=== PATIENT | female | born 1980 | race Caucasian/White ===

== ENCOUNTER 2022-02-28 13:35 | Emergency (ER) | payer OTHER, SELFPAY ==
[2022-02-28 13:35] VITALS: BP 152/91; PULSE 78; RESP 16; TEMP 36.6; O2SAT 100; BMI 41.8
[2022-02-28 15:33] VITALS: PULSE 78; RESP 16
[2022-02-28 15:38] LABS: Absolute Lymphocyte Count 1.64 X10^3/uL (0.83-4.51); Absolute Neutrophil Count 7.8 X10^3/uL (2.0-7.7); Basophil# 0.05 X10^3/uL; Basophil% 0.5 % (0-1); Eosinophil# 0.08 X10^3/uL; Eosinophils% 0.8 % (0-5); Hematocrit 36.1 % (37-47); Hemoglobin 10.9 g/dL (12.0-15.0); Lymphocyte # 1.64 X10^3/ul (0.83-4.51); Lymphocyte % 16.3 % (19-41); Mean Corp Hgb Conc 30.2 g/dL (32-36); Mean Corpuscular Hgb 24.1 pg (27.0-32.0); Mean Corpuscular Volume 79.7 fL (81-99); Mean Platelet Vol. 8.1 fl (6.2-12.0); Monocyte# 0.49 X10^3/uL; Monocyte% 4.9 % (0-10); NRBC Flagged by Analyzer 0 % (0-5); Neutrophil # 7.79 X10^3/uL (2.7-7.7); Neutrophil % 77.2 % (47-70); Platelet Count 456 K/mm3 (150-450); RBC Distribution Width SD 45.7 fl (35.1-43.9); Red Blood Count 4.53 M/mm3 (4.2-5.4); White Blood Count 10.1 K/mm3 (4.4-11.0)
--- NOTE | 2022-02-28 15:39 | EKG12_ITS ---
Test Reason : Blood Pressure : / mmHG Vent. Rate : 085 BPM Atrial Rate : 085 BPM P-R Int : 162 ms QRS Dur : 090 ms QT Int : 360 ms P-R-T Axes : 034 021 050 degrees QTc Int : 428 ms Normal sinus rhythm T wave abnormality, consider anterior ischemia Abnormal ECG Confirmed by CHRISTOPHER BONILLA, MARICRUZ ([id number]), publications editor NEGRITA SUH ([id number]) on 03/01/2022 11:10:55 AM Referred By: Confirmed By:MARICRUZ WHITE MD
--- NOTE | 2022-02-28 15:40 | EX.ED.DYSGE1 ---
HPI History of Present Illness Chief Complaint: Abd Pain Informant: patient Narrative Narrative: Patient actually presents with upper abdominal left lower chest pain. Its been there for several weeks. It is getting a little bit more common. She states the pain last for a matter of seconds at a time. She had 1 episode that seem to last about 20 or 30 seconds and had a fast heartbeat. She states many of the others feels like she skips a beat or has a heavy heartbeat associated with these. But they only last for seconds. She has not been syncopal. The rest of the time she feels fine. She does note that her appetite has been mildly down for the last week but there is no association with eating or not eating. There is no association either with taking deep breaths. There is no pain or difficulty with deep breaths. There is no symptoms caused by motion and twisting or reaching. No fevers or chills. She has no history of any cardiac disease, diabetes, blood pressure or smoking. She does have some obesity. No family history of heart disease or PEs. She has no travel surgery or immobilization personal or family history of DVT or PE. She is not on any hormonal therapy. She does take some vitamin supplements and zinc. Zinc is her newest supplement. But she cannot correlate the symptoms with this completely. [facility] Medical History Anxiety Home Medications cholecalciferol (vitamin D3) 10 mcg (400 unit) capsule (Vitamin D3) 400 unit PO DAILY 06/20/15 [History Last Taken Unknown] ferrous sulfate 325 mg (65 mg iron) tablet (Iron (ferrous sulfate)) 325 mg PO DAILY 06/20/15 [History Last Taken Unknown] hydrocodone-acetaminophen 5-325mg 5mg-325mg 1 - 2 tab PO Q4H PRN PRN Pain ##20 06/20/15 [Rx Last Taken Unknown] naproxen 500 mg tablet 500 mg PO BID PRN ##20 06/20/15 [Rx Last Taken Unknown] vitamin E 670 mg (1,000 unit) capsule 1,000 unit PO DAILY 06/20/15 [History Last Taken Unknown] Allergy/AdvReac Type Severity Reaction Status Date / Time Sulfa (Sulfonamide Allergy Anaphylaxis Verified 02/28/22 13:37 Antibiotics) Social History Smoking Status: Never smoker ROS ROS ED Constitutional Constitutional ED: Denies chills, fever(s) or sweats Eyes Eyes: Denies change in vision ENT ENT ED: Denies ear pain, rhinorrhea or sore throat Cardiovascular Cardiovascular: Reports palpitations; Denies orthopnea or paroxysmal nocturnal dyspnea Respiratory/Chest Respiratory/Chest: Denies cough, dyspnea, dyspnea on exertion, orthopnea, paroxysmal nocturnal dyspnea or sputum Gastrointestinal Gastrointestinal: Denies abdominal pain, diarrhea, nausea or vomiting Genitourinary Genitourinary ED: Denies dysuria Musculoskeletal Musculoskeletal: Denies back pain or neck pain Integumentary Denies rash Neurologic Neurologic: Denies headache(s) or paresthesias Endocrine Endocrinology: Denies polydipsia or polyuria Hematologic/Lymphatic Hematologic/Lymphatic: Denies anemia Allergic/Immunologic Allergic/Immunologic ED: Denies mouth swelling, tongue swelling or urticaria EXAM Physical Exam Const Vital Signs: 02/28/22 13:35 02/28/22 15:33 02/28/22 15:33 Temperature 97.8 F Temperature Source Temporal Pulse Rate 78 78 Respiratory Rate 16 16 Respiratory Effort Normal Respiratory Pattern Normal Blood Pressure 152/91 H Blood Pressure Mean 111 Pulse Ox 100 Oxygen Delivery Method Room Air Room Air 02/28/22 16:22 02/28/22 17:27 Temperature Temperature Source Pulse Rate 83 80 Respiratory Rate 16 19 H Respiratory Effort Respiratory Pattern Blood Pressure 179/94 H 168/97 H Blood Pressure Mean 122 120 Pulse Ox 97 95 Oxygen Delivery Method Room Air Room Air Positive well nourished and well developed General Appearance ED: well developed and NAD; Negative for cyanotic or diaphoretic HEENT Reports moist mucous membranes Eyes EOMs intact bilaterally Neck no JVD Chest Wall inspection of chest normal Chest Narrative: She states that sometimes pressing on the chest is little bit sore but it really does not produce the symptom that she feels. Resp normal respiratory effort and clear to auscultation bilaterally Resp Narrative: No pain with a deep breath. No coughing. Cardio regular rate and regular rhythm Rate: other Other Details: Patient had 1 PAC with compensatory pause while I was in the room. She did feel the symptoms she was complaining of when this occurred. I only saw 1 episode of this and she only had 1 moment of symptoms. GI normal to inspection, nondistended, normoactive bowel sounds and non-tender GI Narrative: Patient does not have any left upper quadrant tenderness. Her abdominal exam is actually quite benign Back/Spine no CVA tenderness Extremity normal to inspection Extremity Narrative: No edema or cords or tenderness. No asymmetry. Neuro Sensorium / Orientation: alert; Negative for lethargic or stuporous Psych mental status grossly normal Skin no rashes or lesions noted MDM MDM MDM Narrative Medical decision making narrative: Chest x-ray showed no acute process. CBC showed anemia which she has had before but I do not think a hemoglobin of 10.9 is causing her symptoms. is negative. Electrolytes are normal. Calcium potassium and chloride are all normal. Renal function is normal. No sign of significant dehydration. LFTs are normal. Lipase is normal. These were tested to make sure she was not having referred pain from pancreatitis or biliary sources even though her story does not sound typical for biliary she does have risk factors. Troponin was negative despite weeks of symptoms. Urine was clean. Patient has intermittent symptoms that last seconds. These seem to be correlated with palpitations. The 1 episode that I was able to witness had a PAC with a compensatory pause. I do not think this requires admission at this time. I do think her symptoms justify follow-up. We discussed reasons to return. Lab Data Attestation: I reviewed the patient's lab results. Labs: Laboratory Results - last 24 hr 02/28/22 02/28/22 02/28/22 15:28 15:28 15:28 WBC 10.1 RBC 4.53 Hgb 10.9 L Hct 36.1 L MCV 79.7 L MCH 24.1 L MCHC 30.2 L RDW Std Deviation 45.7 H RDW Coeff of Glo 16.0 H Plt Count 456 H MPV 8.1 Immature Gran % (Auto) 0.300 Neut % (Auto) 77.2 H Lymph % (Auto) 16.3 L [place] % (Auto) 4.9 Eos % (Auto) 0.8 Baso % (Auto) 0.5 Absolute Neuts (auto) 7.8 H Absolute Lymphs (auto) 1.64 Nucleated RBC % 0 Sodium 139 Potassium 3.7 Chloride 106 Carbon Dioxide 29.0 Anion Gap 4 L BUN 10 Creatinine 0.82 Estim Creat Clear Calc 101.93 Est GFR (MDRD) Af Amer 99 Est GFR (MDRD) Non-Af 81 BUN/Creatinine Ratio 12.2 Glucose 117 H Calcium 9.1 Total Bilirubin Direct Bilirubin AST ALT Alkaline Phosphatase Troponin I High Sens Total Protein Albumin Globulin Lipase Serum , Qual NEGATIVE Urine Color Urine Clarity Urine pH Ur Specific [place] Urine Protein Urine Glucose (UA) Urine Ketones Urine Occult Blood Urine Nitrite Urine Bilirubin Urine Urobilinogen Ur Leukocyte Esterase Urine RBC Urine WBC Ur Squamous Epith Cells Urine Bacteria Urine Mucus 02/28/22 02/28/22 15:28 15:50 WBC RBC Hgb Hct MCV MCH MCHC RDW Std Deviation RDW Coeff of Glo Plt Count MPV Immature Gran % (Auto) Neut % (Auto) Lymph % (Auto) [place] % (Auto) Eos % (Auto) Baso % (Auto) Absolute Neuts (auto) Absolute Lymphs (auto) Nucleated RBC % Sodium Potassium Chloride Carbon Dioxide Anion Gap BUN Creatinine Estim Creat Clear Calc Est GFR (MDRD) Af Amer Est GFR (MDRD) Non-Af BUN/Creatinine Ratio Glucose Calcium Total Bilirubin 0.20 Direct Bilirubin 0.08 AST 6 L ALT 19 Alkaline Phosphatase 86 Troponin I High Sens 4 Total Protein 7.7 Albumin 3.2 Globulin 4.5 H Lipase 83 Serum , Qual Urine Color Straw Urine Clarity Clear Urine pH 7.0 Ur Specific [place] 1.005 Urine Protein Negative Urine Glucose (UA) Normal Urine Ketones Negative Urine Occult Blood Negative Urine Nitrite Negative Urine Bilirubin Negative Urine Urobilinogen Normal Ur Leukocyte Esterase 100 H Urine RBC 0 SEEN Urine WBC 0-5 SEEN Ur Squamous Epith Cells 0-5 SEEN Urine Bacteria 1+ Urine Mucus 0 SEEN Radiography Diagnostic Testin view chest x-ray looked at by me shows no sign of acute process. I see no infiltrate. No pneumothorax. EKG Initial EKG: Comments: EKG done for left upper quadrant/left lower chest pain. And palpitations. EKG read by me shows a normal sinus rhythm with a rate of 85. No ectopy. Nonspecific diffuse ST and T wave changes but no sign of infarct. AK interval, QRS duration and QTc normal. No old EKG available. Discharge Plan Triage Chief Complaint: Abd Pain ED Provider: Zafar Cook Dx/Rx/DC Orders Clinical Impression: Heart palpitations, Left upper quadrant pain Instructions: ED Palpitations Prescriptions: No Action vitamin E 1,000 UNIT capsule 1,000 unit PO DAILY ferrous sulfate [Iron (ferrous sulfate)] 325 MG tablet 325 mg PO DAILY cholecalciferol (vitamin D3) [Vitamin D3] 400 UNIT capsule 400 unit PO DAILY hydrocodone-acetaminophen 1 TABLET tablet 1 - 2 tab PO Q4H PRN PRN (Reason: Pain) Qty: 20 0RF naproxen 500 MG tablet 500 mg PO BID PRN Qty: 20 0RF Primary Care Provider: Liberty Hernandez NP Referrals: [facility],Out of [Non-Staff] - 3-5 Days Disposition Disposition: Home, Self Care
[2022-02-28] MEDS: 0.9% Normal Saline 1,000 ML 1000 ML IV (15:48)
[2022-02-28 15:49] LABS: Internal QC Validated? YES +Cl - CLEAR BKGD
[2022-02-28 15:50] LABS: Pregnancy, Serum, hCG Quali. NEGATIVE Negative
--- NOTE | 2022-02-28 15:50 | NURSING ---
NO OLD EKGS
[2022-02-28 15:52] LABS: Anion Gap 4 (5-15); BUN 10 mg/dL (7-18); BUN/Creat Ratio 12.2 RATIO (10-20); Calcium,Total 9.1 mg/dL (8.5-10.1); Chloride 106 mmol/L (98-107); Creatinine, Serum 0.82 mg/dL (0.55-1.02); EST Glomerular Filtration Rate 81 mL/min (>60); Est Glom Filt Rate - Afr Amer 99 mL/min (>60); Estimated Creatinine Clearance 101.93 ml/min; Glucose 117 mg/dL (74-106); Potassium 3.7 mmol/L (3.5-5.1); Sodium Level 139 mmol/L (136-145)
[2022-02-28 15:56] LABS: Mucous, Urine 0 SEEN /hpf (<or=2+); Red Blood Cells-Urine 0 SEEN /hpf (0-5)
[2022-02-28 16:04] LABS: AST(SGOT) 6 U/L (15-37); Alanine Aminotransfer ALT/SGPT 19 U/L (13-56); Albumin, Serum 3.2 g/dL (3.2-5.0); Alkaline Phosphatase 86 U/L (45-117); Bilirubin, Direct 0.08 mg/dL (0.00-0.30); Globulin 4.5 g/dL (2.2-4.2); Lipase 83 U/L (73-393); Protein, Total 7.7 g/dL (6.4-8.2); Troponin-I HS 4 pg/mL (3.0-54.0)
[2022-02-28 16:08] LABS: Color, Urine Straw (Yellow); Glucose, Dipstick Normal (Normal); Ketone-Dipstick Negative (Negative); Leukocyte Esterase-Dipstick 100 /ul (Negative); Nitrite-Dipstick Negative (Negative); Occult Blood-Urine Negative /ul (Negative); Protein-Dipstick Negative (Negative); Specific Gravity, Urine 1.005 (1.002-1.030); Urine Bilirubin Dipstick Negative (Negative); Urine Clarity Clear (Clear); Urine Urobilinogen Normal (Normal)
[2022-02-28 16:21] LABS: Bacteria 1+ /hpf (None Seen); Squamous Epithelial Cells - UA 0-5 SEEN /hpf (5-10); White Blood Cells 0-5 SEEN /hpf (0-5)
[2022-02-28 16:22] VITALS: BP 179/94; PULSE 83; RESP 16; O2SAT 97
[2022-02-28 17:27] VITALS: BP 168/97; PULSE 80; RESP 19; O2SAT 95
--- NOTE | 2022-02-28 17:35 | RAD_ITS ---
INDICATION: chest pain EXAMINATION/TECHNIQUE: X-RAY - XR Chest 2 Views COMPARISON: No previous relevant examinations available for comparison.. FINDINGS: LIFE-SUPPORT AND LINES: 1. None HEART AND VESSELS: The cardiac silhouette, pulmonary vasculature have normal appearance. No evidence of congestive failure. LUNGS AND PLEURAL SPACES: Lungs are clear. No focal infiltrate, consolidation or effusions. No evidence of pneumothorax. No pulmonary mass is noted. MEDIASTINUM AND HILAR REGIONS: No masses adenopathy noted. No areas of calcification. Visualized upper airway is normal in position. BONY ELEMENTS: No acute bony changes noted. RAD/Chest PA and Lateral IMPRESSION: 1. No evidence of acute cardiopulmonary process Electronically Signed: Aditya Hernandez MD at 18:03 EST ,
[2022-02-28 18:00] VITALS: BP 130/59; PULSE 68; RESP 14; O2SAT 96
== END 2022-02-28 18:03 | disposition home or self-care (01) ==
PROVIDERS: Emergency Provider Emergency Medicine; PCP Registered Nurse; Visit Provider Emergency Medicine
DX: R00.2 Palpitations (principal); R10.12 Left upper quadrant pain; E66.9 Obesity, unspecified
CPT/HCPCS: 71046; 80048; 80076; 81001; 83690; 84484; 84703; 85025; 93005; 96360; 96361; 99284; J7030; A4216